=== PATIENT | female | born 1940 | race Caucasian/White ===

== ENCOUNTER 2021-05-30 11:50 | Emergency (ER) | payer MEDICARE ==
[~2021-05-30 11:50] MED LIST: AMLODIPINE BESYL5 MG PO; ASPIRIN81 MG PO; COLACE 100MG C100 MG PO; CYMBALTA60 MG PO; FEOSOL325 MG PO; HYDROCODON-ACE1 EAC4 PO; IBU400 MG PO; LAXATIVE5 M1 PO; LEVEMIR FL100 UNIT/1 SQ; LIPITOR TAB 2020 MG PO; LISINOPRIL5 MG PO; LORTAB 7.5-3251 EACH PO; METOPROLOL TART25 MG PO; NORCO 5-325 TA1 EACH PO; SODIUM BICARBO650 M1 PO; SPS15 GM/60 M PO; SYNTHROID125 MCG PO
[2021-05-30] MEDS ORDERED: HYDROCODON-ACE1 EAC4 PO (14:20)
== END 2021-05-30 14:44 | disposition home or self-care (01) ==
LOC: ER1 11:50
DX: S42.212A Unspecified displaced fracture of surgical neck of left humerus, initial encounter for closed fracture (principal); E11.9 Type 2 diabetes mellitus without complications; I10 Essential (primary) hypertension; Z86.73 Personal history of transient ischemic attack (TIA), and cerebral infarction without residual deficits; Z85.51 Personal history of malignant neoplasm of bladder; W19.XXXA Unspecified fall, initial encounter
CPT/HCPCS: 73060; 99283